=== PATIENT | female | born 1970 | race Caucasian/White ===

== ENCOUNTER 2017-11-06 12:22 | Outpatient (CLI) | payer BC ==
[2017-11-06] VITALS (19 sets, daily range): BP systolic 110–138; BP diastolic 61–81
== END 2017-11-06 23:59 | disposition home or self-care (01) ==
LOC: CARD DIAG 12:22
PROVIDERS: ATTEND Internal Medicine Interventional Cardiology
DX: R55 Syncope and collapse (principal); Z87.891 Personal history of nicotine dependence
CPT/HCPCS: 93660